=== PATIENT | male | born 1995 | race Caucasian/White ===

== ENCOUNTER 2021-08-02 00:41 | Emergency (ER) | payer OTHER ==
[2021-08-02 01:31] LABS: HEMOGLOBIN 15.3 gm/dl (14.0-17.5); RED BLOOD COUNT 4.83 M/UL (4.20-5.50)
[2021-08-02 02:11] LABS: BUN/CREATININE RATIO 12 (0-10)
== END 2021-08-02 04:43 | disposition home or self-care (01) ==
LOC: ER1 00:41
PROVIDERS: Physician Assistant
DX: R06.02 Shortness of breath (principal); Z20.822 Contact with and (suspected) exposure to COVID-19
CPT/HCPCS: 0240U; 71045; 80053; 82550; 82553; 83874; 83880; 84484; 85025; 85379; 85610; 85730; 99285